=== PATIENT | male | born 1940 | race Caucasian/White ===

== ENCOUNTER → 2019-11-22 | Outpatient (CLI) | payer MEDICARE | END | disposition home or self-care (01) | LOC: CFH 13:50 | PROVIDERS: ATTEND Internal Medicine Hematology & Oncology | DX: C44.729 Squamous cell carcinoma of skin of left lower limb, including hip (principal); N13.30 Unspecified hydronephrosis; N28.1 Cyst of kidney, acquired | CPT/HCPCS: 76770 ==

== ENCOUNTER → 2020-01-16 | Outpatient (CLI) | payer MEDICARE | END | disposition home or self-care (01) | LOC: CFH 07:27 | PROVIDERS: ATTEND Internal Medicine Hematology & Oncology | DX: R91.8 Other nonspecific abnormal finding of lung field (principal); R16.0 Hepatomegaly, not elsewhere classified; N13.30 Unspecified hydronephrosis; J98.4 Other disorders of lung; N62 Hypertrophy of breast; M51.36 Other intervertebral disc degeneration, lumbar region; M16.0 Bilateral primary osteoarthritis of hip; Z90.79 Acquired absence of other genital organ(s) | CPT/HCPCS: 71250; 74176 ==

== ENCOUNTER → 2020-02-04 | Outpatient (CLI) | payer MEDICARE | END | disposition home or self-care (01) | LOC: CARD 11:40 | PROVIDERS: ATTEND Internal Medicine Cardiovascular Disease | DX: R06.02 Shortness of breath (principal) | CPT/HCPCS: 94060; 94726; 94729 ==

== ENCOUNTER 2020-02-17 15:21 | Inpatient (IN) | payer MEDICARE ==
[~2020-02-17] VITALS: Ht 175.3 cm; Wt 108.2 kg
--- NOTE | 2020-02-17 15:43 | NUR ---
PT SENT TO ED PER [facility] APPRAISER. U/S DONE AT [facility] TODAY. STATES "MY KIDNEYS AREN'T WORKING RIGHT". ADMITS TO VOIDING EARLIER. DR MENCHACA NOW BS FOR EXAM. DENIES FEVER, CHILLS, COUGH. REPORTS TROUBLE BREATHING "FOR A WHILE". ABLE TO SPEAK IN COMPLETE SENTENCE. DENIES CP, URINARY DIFFICULTY. + PEDAL EDEMA BILAT X "A COUPLE OF MONTHS". HX: PROSTATE CA, PROSTATECTOMY, CA STAGE IV - LIVER,
[2020-02-17] MEDS ORDERED: SODIUM CHLORIDE FLUSH 10ML SYR IVF ONE (16:00)
[2020-02-17] MEDS ORDERED: COUMADIN (16:01)
[2020-02-17] MEDS ORDERED: ALLOPURINOL (16:06)
[2020-02-17] MEDS ORDERED: WARFARIN (16:06)
--- NOTE | 2020-02-17 16:06 | NUR ---
PT UNABLE TO RECALL NAMES/DOSAGES OF ALL HIS MEDS
[2020-02-17] MEDS ORDERED: CANCER (16:07)
[2020-02-17 16:24] LABS: BASOPHILS # (AUTO) 0.01 x10^3/uL (0-0.1); BASOPHILS % (AUTO) 0 % (0-1); EOSINOPHILS # (AUTO) 0.21 x10^3/uL (0-0.4); EOSINOPHILS % (AUTO) 3 % (1-7); LYMPHOCYTES # (AUTO) 0.29 x10^3/uL (1-3.4); LYMPHOCYTES % (AUTO) 3 % (22-44); MD NO; MEAN PLATELET VOLUME 8.8 fL (7.4-10.4); MONOCYTES # (AUTO) 0.78 x10^3/uL (0.2-0.8); MONOCYTES % (AUTO) 9 % (2-9); NEUTROPHILS # (AUTO) 7.36 x10^3/uL (1.8-6.8); NEUTROPHILS % (AUTO) 85 % (42-75); PLATELET COUNT 257 x10^3/uL (130-400); RED BLOOD COUNT 2.82 x10^6/uL (4.38-5.82); RED CELL DISTRIBUTION WIDTH 15.8 % (9.4-14.8)
[2020-02-17 16:36] LABS: CALCIUM 9.4 mg/dL (8.5-10.1); CHLORIDE 106 mmol/L (98-107)
[2020-02-17 16:39] LABS: INTERNATIONAL NORMALIZED RATIO 4.45 (0.93-1.1)
[2020-02-17 16:43] LABS: ALANINE AMINOTRANSFERASE 12 U/L (12-78); ALKALINE PHOSPHATASE 87 U/L (45-117); BILIRUBIN,TOTAL 0.2 mg/dL (0.2-1.0); CREATININE 8.57 mg/dL (0.7-1.3); TOTAL PROTEIN 7.3 g/dL (6.4-8.2)
[2020-02-17 16:44] LABS: ANION GAP 11 mmol/L (5-15)
[2020-02-17] MEDS ORDERED: FUROSEMIDE 40 MG/4 ML IVPush ONE (17:00)
[2020-02-17] MEDS ORDERED: DEXTROSE 50%, 50ML SYRINGE IVPush ONE (17:00)
[2020-02-17] MEDS ORDERED: INSULIN REGULAR 100 UNITS/ML, 3ML VIAL IVPush ONE (17:00)
[2020-02-17] MEDS ORDERED: CALCIUM CHLORIDE 10%, 10ML SYR IVPush ONE (17:00)
[2020-02-17] MEDS ORDERED: SODIUM BICARB 8.4%, 50ML SYRINGE IVPush ONE (17:00)
[2020-02-17 17:01] LABS: PROTHROMBIN TIME 47.9 Seconds (9.6-11.5)
[2020-02-17] MEDS ORDERED: SODIUM BICARBONATE 1 MEQ/ML, 50ML VIAL ONE (17:09)
[2020-02-17] MEDS ORDERED: FUROSEMIDE 40 MG/4 ML ONE (17:10)
[2020-02-17] MEDS ORDERED: DEXTROSE 50%, 50ML SYRINGE ONE (17:10)
[2020-02-17] MEDS ORDERED: CALCIUM CHLORIDE 10%, 10ML SYR ONE (17:11)
--- NOTE | 2020-02-17 17:25 | NUR ---
PT ENDORSED TO BREAK RN: MARIZOL.
[2020-02-17] MEDS ORDERED: INSULIN SINGLE DOSE, ER ONE (17:30)
--- NOTE | 2020-02-17 17:40 | NUR ---
TASK RN: WILL PLACE IV AND ADMINISTER MEDICATIONS AFTER TEMP DIALYSIS CATH IS PLACED.
[2020-02-17] MEDS ORDERED: SODIUM CHLORIDE FLUSH 10ML SYR IVF PRN (18:00)
--- NOTE | 2020-02-17 18:11 | NUR ---
PT REPORT FROM CAROLYNE FONTANA RN. PT CARE TO BE ASSUMED. PT TO GO TO DIALYSIS THEN FLOOR. HOSPITALIST AT . Addendum: 02/17/20 at 181 by TREVON PER MARIZOL: ARAGON ORDER WAS CANCELED AND PREVIOUSLY ORDERED MEDS ON HOLD DUE TO PENDING DIALYSIS. Addendum: 02/17/20 at 1823 by TREVON CORRECTION: EVENT ORGANIZER AT , NOT HOSPITALIST.
--- NOTE | 2020-02-17 18:20 | NUR ---
CALLED [facility] REPAIR[facility]; PER WESLY NORRIS PT MAY COME TO UNIT NOW. PREFERS THAT PT BE ON A GURNEY.
[2020-02-17] MEDS ORDERED: ACETAMINOPHEN 325 MG TABLET PO PRN (18:30)
[2020-02-17] MEDS ORDERED: ONDANSETRON ODT 4 MG PO PRN (18:30)
[2020-02-17] MEDS ORDERED: PHYTONADIONE 1 MG/0.5ML IV ONE (21:00)
[2020-02-17] MEDS ORDERED: PHARMACY INSTRUCTION MC PRN (21:00)
[2020-02-17] MEDS ORDERED: PHYTONADIONE 2.5 MG in SODIUM CHLORIDE 0.9% 50 ML IV ONE (21:30)
[2020-02-17 21:43] VITALS: BP 169/92
[2020-02-17] MEDS ORDERED: WARF1TAB PO (21:47)
[2020-02-17] MEDS ORDERED: ALLO300T PO (21:47)
[2020-02-17] MEDS ORDERED: NAPR220C2 PO (21:47)
[2020-02-17] MEDS ORDERED: ENZA40CA PO (22:20)
[2020-02-17] MEDS ORDERED: LORA10TA75 PO (22:22)
[2020-02-17] MEDS: SODIUM CHLORIDE FLUSH 10ML SYR IVF SCH (22:43)
[2020-02-17] MEDS: ONDANSETRON 2MG/ML, 2ML IVPush PRN (23:17)
[2020-02-18 00:55] VITALS: BP 148/76
[2020-02-18 01:51] LABS: MICROSCOPIC AUTO
[2020-02-18 01:52] LABS: CULTURE INDICATED? NO
[2020-02-18 06:05] LABS: BASOPHILS % (AUTO) 0 % (0-1); EOSINOPHILS # (AUTO) 0.09 x10^3/uL (0-0.4); EOSINOPHILS % (AUTO) 1 % (1-7); LYMPHOCYTES % (AUTO) 3 % (22-44); MD NO; MEAN CORPUSCULAR HEMOGLOBIN 35.2 pg (27.5-34.5); MEAN CORPUSCULAR VOLUME 106.6 fL (81-97); MEAN PLATELET VOLUME 9.3 fL (7.4-10.4); MONOCYTES # (AUTO) 0.75 x10^3/uL (0.2-0.8); MONOCYTES % (AUTO) 8 % (2-9); NEUTROPHILS # (AUTO) 8.43 x10^3/uL (1.8-6.8); NEUTROPHILS % (AUTO) 88 % (42-75); PLATELET COUNT 231 x10^3/uL (130-400); RED BLOOD COUNT 2.73 x10^6/uL (4.38-5.82); RED CELL DISTRIBUTION WIDTH 15.8 % (9.4-14.8)
[2020-02-18 06:13] LABS: INTERNATIONAL NORMALIZED RATIO 1.99 (0.93-1.1); PROTHROMBIN TIME 21.2 Seconds (9.6-11.5)
[2020-02-18 06:22] LABS: ANION GAP 10 mmol/L (5-15); CALCIUM 8.9 mg/dL (8.5-10.1); CHLORIDE 105 mmol/L (98-107); CREATININE 6.68 mg/dL (0.7-1.3)
[2020-02-18 06:56] VITALS: BP 153/84
[2020-02-18] MEDS: SODIUM CHLORIDE FLUSH 10ML SYR IVF SCH ×2 (09:10→20:23)
[2020-02-18] MEDS: METOPROLOL SUCCINATE 100 MG TAB.ER.24H PO SCH (09:11)
[2020-02-18] MEDS ORDERED: PHYTONADIONE 5 MG TABLET PO ONE (11:00)
[2020-02-18 12:40] VITALS: BP 162/80
[2020-02-18 17:22] LABS: BASOPHILS # (AUTO) 0.01 x10^3/uL (0-0.1); BASOPHILS % (AUTO) 0 % (0-1); EOSINOPHILS # (AUTO) 0.16 x10^3/uL (0-0.4); EOSINOPHILS % (AUTO) 2 % (1-7); LYMPHOCYTES # (AUTO) 0.29 x10^3/uL (1-3.4); LYMPHOCYTES % (AUTO) 3 % (22-44); MD NO; MEAN CORPUSCULAR HEMOGLOBIN 35.1 pg (27.5-34.5); MEAN CORPUSCULAR HGB CONC 33.1 g/dL (33.2-36.2); MEAN CORPUSCULAR VOLUME 106.2 fL (81-97); MEAN PLATELET VOLUME 8.5 fL (7.4-10.4); MONOCYTES # (AUTO) 1.13 x10^3/uL (0.2-0.8); MONOCYTES % (AUTO) 12 % (2-9); NEUTROPHILS # (AUTO) 7.81 x10^3/uL (1.8-6.8); NEUTROPHILS % (AUTO) 83 % (42-75); PLATELET COUNT 257 x10^3/uL (130-400); RED CELL DISTRIBUTION WIDTH 15.7 % (9.4-14.8)
[2020-02-18 18:59] VITALS: BP 129/65
[2020-02-19 00:12] VITALS: BP 138/79
[2020-02-19] MEDS: METOPROLOL SUCCINATE 100 MG TAB.ER.24H PO SCH (05:22)
[2020-02-19 05:48] LABS: BASOPHILS # (AUTO) 0.05 x10^3/uL (0-0.1); BASOPHILS % (AUTO) 1 % (0-1); EOSINOPHILS # (AUTO) 0.18 x10^3/uL (0-0.4); EOSINOPHILS % (AUTO) 2 % (1-7); LYMPHOCYTES # (AUTO) 0.36 x10^3/uL (1-3.4); LYMPHOCYTES % (AUTO) 4 % (22-44); MD NO; MEAN CORPUSCULAR HGB CONC 32.8 g/dL (33.2-36.2); MEAN CORPUSCULAR VOLUME 106.8 fL (81-97); MEAN PLATELET VOLUME 8.6 fL (7.4-10.4); MONOCYTES % (AUTO) 10 % (2-9); NEUTROPHILS # (AUTO) 8.39 x10^3/uL (1.8-6.8); NEUTROPHILS % (AUTO) 84 % (42-75); PLATELET COUNT 246 x10^3/uL (130-400); RED BLOOD COUNT 2.49 x10^6/uL (4.38-5.82)
[2020-02-19 05:57] LABS: CALCIUM 8.9 mg/dL (8.5-10.1); CHLORIDE 102 mmol/L (98-107)
[2020-02-19 05:58] LABS: INTERNATIONAL NORMALIZED RATIO 1.1 (0.93-1.1); PROTHROMBIN TIME 11.7 Seconds (9.6-11.5)
[2020-02-19 06:03] LABS: ALANINE AMINOTRANSFERASE 11 U/L (12-78); ALBUMIN 2.5 g/dL (3.4-5.0); ALKALINE PHOSPHATASE 77 U/L (45-117); ANION GAP 10 mmol/L (5-15); BILIRUBIN,TOTAL 0.6 mg/dL (0.2-1.0); CREATININE 5.48 mg/dL (0.7-1.3); TOTAL PROTEIN 6.5 g/dL (6.4-8.2)
[2020-02-19 06:50] VITALS: BP 124/77
[2020-02-19] MEDS: SODIUM CHLORIDE FLUSH 10ML SYR IVF SCH ×2 (09:00→20:10)
[2020-02-19] MEDS ORDERED: LIDOCAINE 1%, 20ML ONE (09:31)
[2020-02-19] MEDS ORDERED: MIDAZOLAM 1 MG/ML, 5ML ONE (09:46)
[2020-02-19] MEDS ORDERED: FENTANYL PF 100 MCG/2ML ONE (09:46)
[2020-02-19] MEDS ORDERED: FLUMAZENIL 0.1 MG/1 ML, 5ML ONE (09:46)
[2020-02-19] MEDS ORDERED: NALOXONE 1 MG/ML, 2ML ONE (09:46)
[2020-02-19] MEDS ORDERED: VISIPAQUE 270 MG/ML, 50ML BOTTLE ONE (11:30)
[2020-02-19 12:30] VITALS: BP 118/60
[2020-02-19 18:49] VITALS: BP 124/70
[2020-02-20 00:16] VITALS: BP 154/77
[2020-02-20 00:29] VITALS: BP 152/78
[2020-02-20 05:25] LABS: MEAN CORPUSCULAR HGB CONC 33.5 g/dL (33.2-36.2); MEAN CORPUSCULAR VOLUME 107.3 fL (81-97); MEAN PLATELET VOLUME 8.9 fL (7.4-10.4); PLATELET COUNT 239 x10^3/uL (130-400); RED BLOOD COUNT 2.28 x10^6/uL (4.38-5.82); RED CELL DISTRIBUTION WIDTH 15.5 % (9.4-14.8)
[2020-02-20 05:29] LABS: CHLORIDE 107 mmol/L (98-107)
[2020-02-20 05:36] LABS: ALANINE AMINOTRANSFERASE 8 U/L (12-78); ALBUMIN 2.2 g/dL (3.4-5.0); ALKALINE PHOSPHATASE 71 U/L (45-117); ANION GAP 9 mmol/L (5-15); BILIRUBIN,TOTAL 0.6 mg/dL (0.2-1.0); CALCIUM 8.9 mg/dL (8.5-10.1); CREATININE 5.45 mg/dL (0.7-1.3); TOTAL PROTEIN 6.1 g/dL (6.4-8.2)
[2020-02-20 06:22] LABS: MD MORPH REVIEW ONLY
[2020-02-20 06:23] LABS: <PLATELET ESTIMATE> ADEQUATE; <PLT MORPHOLOGY> NORMAL PLT MORPH; ANISOCYTOSIS 1+; BASOPHILS # (AUTO) 0.01 x10^3/uL (0-0.1); BASOPHILS % (AUTO) 0 % (0-1); EOSINOPHILS % (AUTO) 4 % (1-7); LYMPHOCYTES # (AUTO) 0.38 x10^3/uL (1-3.4); LYMPHOCYTES % (AUTO) 6 % (22-44); MONOCYTES # (AUTO) 0.68 x10^3/uL (0.2-0.8); MONOCYTES % (AUTO) 10 % (2-9); NEUTROPHILS # (AUTO) 5.51 x10^3/uL (1.8-6.8); NEUTROPHILS % (AUTO) 80 % (42-75)
[2020-02-20 07:43] VITALS: BP 153/80
[2020-02-20 08:33] LABS: INTERNATIONAL NORMALIZED RATIO 0.97 (0.93-1.1); PROTHROMBIN TIME 10.3 Seconds (9.6-11.5)
[2020-02-20] MEDS: SODIUM CHLORIDE FLUSH 10ML SYR IVF SCH ×2 (09:00→20:36)
[2020-02-20] MEDS ORDERED: SENNA/DOCUSATE TABLET PO PRN (11:00)
[2020-02-20 13:36] VITALS: BP 148/82
[2020-02-20] MEDS ORDERED: WARFARIN 5 MG TABLET PO-COUM ONE (18:00)
[2020-02-20 19:07] VITALS: BP 158/80
[2020-02-21 00:11] VITALS: BP 150/88
[2020-02-21 05:28] VITALS: BP 161/95
[2020-02-21] MEDS: METOPROLOL SUCCINATE 100 MG TAB.ER.24H PO SCH (05:32)
[2020-02-21 05:36] LABS: BASOPHILS % (AUTO) 0 % (0-1); EOSINOPHILS # (AUTO) 0.27 x10^3/uL (0-0.4); EOSINOPHILS % (AUTO) 5 % (1-7); INTERNATIONAL NORMALIZED RATIO 0.99 (0.93-1.1); LYMPHOCYTES % (AUTO) 7 % (22-44); MD NO; MEAN CORPUSCULAR HEMOGLOBIN 35.6 pg (27.5-34.5); MEAN CORPUSCULAR HGB CONC 33.5 g/dL (33.2-36.2); MEAN CORPUSCULAR VOLUME 106.2 fL (81-97); MEAN PLATELET VOLUME 8.6 fL (7.4-10.4); MONOCYTES # (AUTO) 0.68 x10^3/uL (0.2-0.8); MONOCYTES % (AUTO) 12 % (2-9); NEUTROPHILS # (AUTO) 4.57 x10^3/uL (1.8-6.8); NEUTROPHILS % (AUTO) 77 % (42-75); PLATELET COUNT 272 x10^3/uL (130-400); PROTHROMBIN TIME 10.5 Seconds (9.6-11.5); RED BLOOD COUNT 2.45 x10^6/uL (4.38-5.82)
[2020-02-21 05:38] LABS: ANION GAP 6 mmol/L (5-15); CALCIUM 9.2 mg/dL (8.5-10.1); CHLORIDE 107 mmol/L (98-107)
[2020-02-21 09:45] VITALS: BP 150/87
[2020-02-21] MEDS: DOCUSATE 100 MG CAPSULE PO PRN (11:23)
[2020-02-21] MEDS: SODIUM CHLORIDE FLUSH 10ML SYR IVF SCH ×2 (11:23→20:54)
[2020-02-21 12:10] VITALS: BP 136/83
[2020-02-21] MEDS ORDERED: WARFARIN 5 MG TABLET PO-COUM ONE (18:00)
[2020-02-21 19:14] VITALS: BP 160/89
[2020-02-22 00:22] VITALS: BP 135/76
[2020-02-22] MEDS: METOPROLOL SUCCINATE 100 MG TAB.ER.24H PO SCH (05:16)
[2020-02-22 05:51] LABS: BASOPHILS # (AUTO) 0.01 x10^3/uL (0-0.1); BASOPHILS % (AUTO) 0 % (0-1); EOSINOPHILS # (AUTO) 0.29 x10^3/uL (0-0.4); EOSINOPHILS % (AUTO) 5 % (1-7); LYMPHOCYTES # (AUTO) 0.36 x10^3/uL (1-3.4); LYMPHOCYTES % (AUTO) 6 % (22-44); MD NO; MEAN CORPUSCULAR HEMOGLOBIN 35.8 pg (27.5-34.5); MEAN CORPUSCULAR HGB CONC 33.5 g/dL (33.2-36.2); MEAN CORPUSCULAR VOLUME 106.9 fL (81-97); MEAN PLATELET VOLUME 8.5 fL (7.4-10.4); MONOCYTES # (AUTO) 0.63 x10^3/uL (0.2-0.8); MONOCYTES % (AUTO) 11 % (2-9); NEUTROPHILS # (AUTO) 4.42 x10^3/uL (1.8-6.8); NEUTROPHILS % (AUTO) 77 % (42-75); PLATELET COUNT 269 x10^3/uL (130-400); RED BLOOD COUNT 2.26 x10^6/uL (4.38-5.82); RED CELL DISTRIBUTION WIDTH 15.6 % (9.4-14.8)
[2020-02-22 06:02] LABS: ALBUMIN 2.4 g/dL (3.4-5.0); ANION GAP 7 mmol/L (5-15); CALCIUM 8.8 mg/dL (8.5-10.1); CHLORIDE 108 mmol/L (98-107)
[2020-02-22 06:04] LABS: INTERNATIONAL NORMALIZED RATIO 1.09 (0.93-1.1); PROTHROMBIN TIME 11.6 Seconds (9.6-11.5)
[2020-02-22 06:05] LABS: ALANINE AMINOTRANSFERASE 10 U/L (12-78); ALKALINE PHOSPHATASE 72 U/L (45-117); BILIRUBIN,TOTAL 0.5 mg/dL (0.2-1.0); TOTAL PROTEIN 6.3 g/dL (6.4-8.2)
[2020-02-22 08:20] VITALS: BP 132/85
[2020-02-22 09:23] VITALS: BP 107/69
[2020-02-22] MEDS: SODIUM CHLORIDE FLUSH 10ML SYR IVF SCH ×2 (09:31→20:41)
[2020-02-22 12:02] VITALS: BP 120/75
[2020-02-22] MEDS ORDERED: WARFARIN 5 MG TABLET PO-COUM ONE (18:00)
[2020-02-22 18:56] VITALS: BP 136/80
[2020-02-23 00:26] VITALS: BP 125/78
[2020-02-23] MEDS: DOCUSATE 100 MG CAPSULE PO PRN (04:35)
[2020-02-23 04:51] LABS: BASOPHILS % (AUTO) 0 % (0-1); EOSINOPHILS # (AUTO) 0.27 x10^3/uL (0-0.4); EOSINOPHILS % (AUTO) 4 % (1-7); LYMPHOCYTES # (AUTO) 0.39 x10^3/uL (1-3.4); LYMPHOCYTES % (AUTO) 7 % (22-44); MD NO; MEAN CORPUSCULAR HEMOGLOBIN 34.8 pg (27.5-34.5); MEAN CORPUSCULAR HGB CONC 32.4 g/dL (33.2-36.2); MEAN CORPUSCULAR VOLUME 107.4 fL (81-97); MEAN PLATELET VOLUME 7.7 fL (7.4-10.4); MONOCYTES # (AUTO) 0.58 x10^3/uL (0.2-0.8); MONOCYTES % (AUTO) 10 % (2-9); NEUTROPHILS % (AUTO) 79 % (42-75); PLATELET COUNT 312 x10^3/uL (130-400); RED BLOOD COUNT 2.32 x10^6/uL (4.38-5.82)
[2020-02-23 05:01] LABS: INTERNATIONAL NORMALIZED RATIO 1.05 (0.93-1.1); PROTHROMBIN TIME 11.1 Seconds (9.6-11.5)
[2020-02-23 05:03] LABS: ANION GAP 9 mmol/L (5-15); CALCIUM 8.8 mg/dL (8.5-10.1); CHLORIDE 106 mmol/L (98-107); CREATININE 3.08 mg/dL (0.7-1.3)
[2020-02-23] MEDS: METOPROLOL SUCCINATE 100 MG TAB.ER.24H PO SCH (05:42)
[2020-02-23 08:01] VITALS: BP 125/75
[2020-02-23] MEDS: SODIUM CHLORIDE FLUSH 10ML SYR IVF SCH ×2 (09:00→19:30)
[2020-02-23 12:29] VITALS: BP 103/67
[2020-02-23] MEDS ORDERED: FENTANYL PF 100 MCG/2ML ONE ×2 (14:02→14:26)
[2020-02-23] MEDS ORDERED: NALOXONE 1 MG/ML, 2ML ONE (14:03)
[2020-02-23] MEDS ORDERED: ONDANSETRON 2MG/ML, 2ML ONE (15:00)
[2020-02-23] MEDS ORDERED: WARFARIN 7.5 MG TABLET PO-COUM ONE (18:00)
[2020-02-23 18:50] VITALS: BP 119/78
[2020-02-23] MEDS: ONDANSETRON 2MG/ML, 2ML IVPush PRN (23:11)
[2020-02-23] MEDS: MORPHINE SULFATE 4 MG/ML, 1ML IVPush PRN (23:12)
[2020-02-24 01:02] VITALS: BP 109/71
[2020-02-24] MEDS: MORPHINE SULFATE 4 MG/ML, 1ML IVPush PRN (04:41)
[2020-02-24] MEDS: METOPROLOL SUCCINATE 100 MG TAB.ER.24H PO SCH (06:00)
[2020-02-24 06:10] VITALS: BP 95/58
[2020-02-24] MEDS: HYDROmorphone 1 MG/ML, 1ML INJ IV PRN ×2 (07:37→12:12)
[2020-02-24] MEDS: SODIUM CHLORIDE FLUSH 10ML SYR IVF SCH ×2 (07:37→21:20)
[2020-02-24 07:51] VITALS: BP 95/63
[2020-02-24 10:10] LABS: MEAN CORPUSCULAR HEMOGLOBIN 35.1 pg (27.5-34.5); MEAN CORPUSCULAR VOLUME 106.4 fL (81-97); MEAN PLATELET VOLUME 8.2 fL (7.4-10.4); PLATELET COUNT 318 x10^3/uL (130-400); RED BLOOD COUNT 2.27 x10^6/uL (4.38-5.82); RED CELL DISTRIBUTION WIDTH 15.9 % (9.4-14.8)
[2020-02-24 10:16] LABS: ANION GAP 7 mmol/L (5-15); CALCIUM 9.3 mg/dL (8.5-10.1); CHLORIDE 104 mmol/L (98-107); CREATININE 5.25 mg/dL (0.7-1.3)
[2020-02-24 10:24] LABS: MD YES
[2020-02-24 10:26] LABS: BAND#(MANUAL) 0.13 x10^3/uL; BANDS%(MANUAL) 1 % (0-7); LYMPHS% (MANUAL) 3 % (22-44); METAMYELOCYTES# (MANUAL) 0.13 x10^3/uL (0-0); METAMYELOCYTES% (MANUAL) 1 % (0-1); MONOS% (MANUAL) 3 % (2-9); MYELOCYTES# (MANUAL) 0.13 x10^3/uL (0-0); MYELOCYTES% (MANUAL) 1 % (0-0); SEG#(MANUAL) 12.01 x10^3/uL (1.8-6.8); SEGS% (MANUAL) 91 % (42-75)
[2020-02-24 10:27] LABS: <PLATELET ESTIMATE> ADEQUATE; <PLT MORPHOLOGY> NORMAL PLT MORPH; ANISOCYTOSIS 1+
[2020-02-24 10:28] LABS: OVALOCYTES 1+
[2020-02-24 10:29] LABS: INTERNATIONAL NORMALIZED RATIO 1.1 (0.93-1.1); PROTHROMBIN TIME 11.7 Seconds (9.6-11.5)
[2020-02-24] MEDS ORDERED: SODIUM CHLORIDE 0.9% 1,000 ML IV SCH (11:00)
[2020-02-24] MEDS ORDERED: SODIUM BICARBONATE 8.4% 150 MEQ in DEXTROSE 5% 1,000 ML IV SCH (11:30)
[2020-02-24] MEDS ORDERED: FENTANYL PF 100 MCG/2ML ONE ×2 (12:22→12:23)
[2020-02-24] MEDS ORDERED: MIDAZOLAM 1 MG/ML, 5ML ONE (12:22)
[2020-02-24] MEDS ORDERED: FLUMAZENIL 0.1 MG/1 ML, 5ML ONE (12:22)
[2020-02-24] MEDS ORDERED: NALOXONE 1 MG/ML, 2ML ONE (12:23)
[2020-02-24] MEDS ORDERED: LIDOCAINE 1%, 10ML ONE (12:49)
[2020-02-24] MEDS ORDERED: VISIPAQUE 270 MG/ML, 50ML BOTTLE ONE (13:13)
[2020-02-24 15:38] LABS: ALBUMIN 2.5 g/dL (3.4-5.0); ANION GAP 6 mmol/L (5-15); CALCIUM 9.2 mg/dL (8.5-10.1); CHLORIDE 103 mmol/L (98-107); CREATININE 5.81 mg/dL (0.7-1.3)
[2020-02-24 16:55] VITALS: BP 96/62
[2020-02-24] MEDS: SODIUM POLYSTYRENE SULFONATE ORAL SUSP PO SCH ×2 (17:43→21:20)
[2020-02-24] MEDS ORDERED: WARFARIN 3 MG TABLET PO-COUM ONE (18:00)
[2020-02-24 18:27] VITALS: BP 106/53
[2020-02-24] MEDS ORDERED: SODIUM BICARBONATE 650 MG TABLET PO SCH (21:00)
[2020-02-25] VITALS (7 sets, daily range): BP systolic 92–119; BP diastolic 57–71
[2020-02-25 05:41] LABS: ALBUMIN 2.3 g/dL (3.4-5.0); ANION GAP 12 mmol/L (5-15); CHLORIDE 103 mmol/L (98-107); CREATININE 6.62 mg/dL (0.7-1.3); MEAN CORPUSCULAR HEMOGLOBIN 35.4 pg (27.5-34.5); MEAN CORPUSCULAR HGB CONC 32.8 g/dL (33.2-36.2); MEAN CORPUSCULAR VOLUME 108.1 fL (81-97); MEAN PLATELET VOLUME 8.6 fL (7.4-10.4); PLATELET COUNT 249 x10^3/uL (130-400); RED BLOOD COUNT 1.88 x10^6/uL (4.38-5.82); RED CELL DISTRIBUTION WIDTH 15.6 % (9.4-14.8)
[2020-02-25] MEDS ORDERED: METOPROLOL SUCCINATE 50 MG TAB.ER.24H PO SCH (06:00)
[2020-02-25] MEDS: SODIUM POLYSTYRENE SULFONATE ORAL SUSP PO SCH ×3 (06:12→21:03)
[2020-02-25 06:16] LABS: BASOPHILS % (AUTO) 0 % (0-1); EOSINOPHILS # (AUTO) 0.15 x10^3/uL (0-0.4); EOSINOPHILS % (AUTO) 1 % (1-7); LYMPHOCYTES # (AUTO) 0.33 x10^3/uL (1-3.4); LYMPHOCYTES % (AUTO) 3 % (22-44); MD SCAN; MONOCYTES # (AUTO) 0.92 x10^3/uL (0.2-0.8); MONOCYTES % (AUTO) 8 % (2-9); NEUTROPHILS # (AUTO) 10.41 x10^3/uL (1.8-6.8); NEUTROPHILS % (AUTO) 88 % (42-75)
[2020-02-25 06:23] LABS: INTERNATIONAL NORMALIZED RATIO 1.22 (0.93-1.1)
[2020-02-25] MEDS: SODIUM CHLORIDE FLUSH 10ML SYR IVF SCH ×2 (07:40→21:00)
[2020-02-25] MEDS: SODIUM BICARBONATE 650 MG TABLET PO SCH ×2 (07:40→21:03)
[2020-02-25] MEDS: HYDROmorphone 1 MG/ML, 1ML INJ IV PRN ×2 (07:59→13:06)
[2020-02-25 08:22] LABS: MICROSCOPIC INDICATED
[2020-02-25 08:38] LABS: CULTURE INDICATED? YES
[2020-02-25] MEDS ORDERED: SODIUM BICARBONATE 8.4% 150 MEQ in DEXTROSE 5% 1,000 ML IV SCH (11:30)
[2020-02-25] MEDS ORDERED: LIDOCAINE 1%, 10ML ONE ×2 (13:11→14:51)
[2020-02-25] MEDS ORDERED: MIDAZOLAM 1 MG/ML, 5ML ONE (13:37)
[2020-02-25] MEDS ORDERED: FENTANYL PF 100 MCG/2ML ONE ×2 (13:37→14:46)
[2020-02-25] MEDS ORDERED: NALOXONE 1 MG/ML, 2ML ONE (13:38)
[2020-02-25] MEDS ORDERED: FLUMAZENIL 0.1 MG/1 ML, 5ML ONE (13:38)
[2020-02-25] MEDS ORDERED: VISIPAQUE 320MG/ML, 50ML BOTTLE ONE (15:09)
[2020-02-25] MEDS ORDERED: WARFARIN 3 MG TABLET PO-COUM ONE (18:00)
[2020-02-26 01:04] VITALS: BP 110/65
[2020-02-26 05:43] LABS: ALBUMIN 2.4 g/dL (3.4-5.0); ANION GAP 15 mmol/L (5-15); CALCIUM 9.1 mg/dL (8.5-10.1); CHLORIDE 101 mmol/L (98-107); CREATININE 6.47 mg/dL (0.7-1.3)
[2020-02-26 05:45] LABS: INTERNATIONAL NORMALIZED RATIO 1.49 (0.93-1.1); PROTHROMBIN TIME 15.9 Seconds (9.6-11.5)
[2020-02-26 06:08] LABS: BASOPHILS % (AUTO) 0 % (0-1); EOSINOPHILS # (AUTO) 0.08 x10^3/uL (0-0.4); EOSINOPHILS % (AUTO) 1 % (1-7); LYMPHOCYTES % (AUTO) 1 % (22-44); MD NO; MEAN CORPUSCULAR HEMOGLOBIN 35.1 pg (27.5-34.5); MEAN CORPUSCULAR HGB CONC 33.4 g/dL (33.2-36.2); MEAN CORPUSCULAR VOLUME 105.1 fL (81-97); MEAN PLATELET VOLUME 9.2 fL (7.4-10.4); MONOCYTES # (AUTO) 0.62 x10^3/uL (0.2-0.8); MONOCYTES % (AUTO) 4 % (2-9); NEUTROPHILS # (AUTO) 14.32 x10^3/uL (1.8-6.8); NEUTROPHILS % (AUTO) 94 % (42-75); PLATELET COUNT 280 x10^3/uL (130-400); RED BLOOD COUNT 2.25 x10^6/uL (4.38-5.82); RED CELL DISTRIBUTION WIDTH 16.8 % (9.4-14.8)
[2020-02-26 07:10] VITALS: BP 114/67
[2020-02-26] MEDS: SODIUM CHLORIDE FLUSH 10ML SYR IVF SCH ×2 (09:00→21:11)
[2020-02-26] MEDS: SODIUM BICARBONATE 650 MG TABLET PO SCH ×2 (10:01→21:11)
[2020-02-26] MEDS: SODIUM POLYSTYRENE SULFONATE ORAL SUSP PO SCH (10:02)
[2020-02-26 12:45] VITALS: BP 119/68
[2020-02-26] MEDS: ONDANSETRON 2MG/ML, 2ML IVPush PRN (17:57)
[2020-02-26] MEDS: HYDROmorphone 1 MG/ML, 1ML INJ IV PRN ×2 (17:58→23:10)
[2020-02-26] MEDS ORDERED: WARFARIN 7.5 MG TABLET PO-COUM ONE (18:00)
[2020-02-26 19:24] VITALS: BP 110/64
[2020-02-27] VITALS (9 sets, daily range): BP systolic 93–145; BP diastolic 53–72
[2020-02-27] MEDS: HYDROmorphone 1 MG/ML, 1ML INJ IV PRN ×2 (03:51→14:40)
[2020-02-27 04:59] LABS: INTERNATIONAL NORMALIZED RATIO 2.34 (0.93-1.1)
[2020-02-27 05:02] LABS: ANION GAP 12 mmol/L (5-15); CALCIUM 8.9 mg/dL (8.5-10.1); CHLORIDE 101 mmol/L (98-107); CREATININE 4.87 mg/dL (0.7-1.3)
[2020-02-27 05:12] LABS: MEAN CORPUSCULAR HEMOGLOBIN 34.9 pg (27.5-34.5); MEAN CORPUSCULAR HGB CONC 33.2 g/dL (33.2-36.2); PLATELET COUNT 279 x10^3/uL (130-400); RED BLOOD COUNT 1.93 x10^6/uL (4.38-5.82); RED CELL DISTRIBUTION WIDTH 16.8 % (9.4-14.8)
[2020-02-27 05:47] LABS: BASOPHILS % (AUTO) 0 % (0-1); EOSINOPHILS # (AUTO) 0.17 x10^3/uL (0-0.4); EOSINOPHILS % (AUTO) 2 % (1-7); LYMPHOCYTES % (AUTO) 4 % (22-44); MD SCAN; MONOCYTES # (AUTO) 0.72 x10^3/uL (0.2-0.8); MONOCYTES % (AUTO) 7 % (2-9); NEUTROPHILS # (AUTO) 9.72 x10^3/uL (1.8-6.8); NEUTROPHILS % (AUTO) 88 % (42-75)
[2020-02-27] MEDS ORDERED: POTASSIUM CHLORIDE 40 MEQ in SODIUM CHLORIDE 0.9% 500 ML IV ONE (07:00)
[2020-02-27] MEDS ORDERED: POTASSIUM CHLORIDE 20 MEQ TAB.ER.PRT PO SCH (08:00)
[2020-02-27] MEDS: SODIUM CHLORIDE FLUSH 10ML SYR IVF SCH (08:15)
[2020-02-27] MEDS: SODIUM BICARBONATE 650 MG TABLET PO SCH (08:15)
[2020-02-27] MEDS ORDERED: OXYC5TAB2 BC (12:41)
[2020-02-27] MEDS ORDERED: morphine BC (12:41)
[2020-02-27] MEDS ORDERED: DOCU100C33 PO (12:41)
[2020-02-27] MEDS ORDERED: WARFARIN 5 MG TABLET PO-COUM ONE (18:00)
== END 2020-02-27 15:59 | disposition hospice, home (50) | DRG 682 ==
LOC: ED 15:46 → EDIP 18:07 → 4WST 18:28
PROVIDERS: ADMIT Family Medicine; ATTEND Family Medicine
PROC: 5A1D70Z Performance of Urinary Filtration, Intermittent, Less than 6 Hours Per Day (ICD-10-PCS; 2020-02-17)
PROC: 5A1D70Z Performance of Urinary Filtration, Intermittent, Less than 6 Hours Per Day (ICD-10-PCS; 2020-02-18)
PROC: 02HV33Z Insertion of Infusion Device into Superior Vena Cava, Percutaneous Approach (ICD-10-PCS; 2020-02-19)
PROC: B548ZZA Ultrasonography of Superior Vena Cava, Guidance (ICD-10-PCS; 2020-02-19)
PROC: 0T9430Z Drainage of Left Kidney Pelvis with Drainage Device, Percutaneous Approach (ICD-10-PCS; 2020-02-19)
PROC: 0T9330Z Drainage of Right Kidney Pelvis with Drainage Device, Percutaneous Approach (ICD-10-PCS; principal; 2020-02-25)
PROC: 30233N1 Transfusion of Nonautologous Red Blood Cells into Peripheral Vein, Percutaneous Approach (ICD-10-PCS; 2020-02-25)
DX: N17.0 Acute kidney failure with tubular necrosis (principal); G93.41 Metabolic encephalopathy; I13.0 Hypertensive heart and chronic kidney disease with heart failure and stage 1 through stage 4 chronic kidney disease, or unspecified chronic kidney disease; T83.83XA Hemorrhage due to genitourinary prosthetic devices, implants and grafts, initial encounter; T82.838A Hemorrhage due to vascular prosthetic devices, implants and grafts, initial encounter; D68.59 Other primary thrombophilia; E87.1 Hypo-osmolality and hyponatremia; E87.2 Acidosis; C78.6 Secondary malignant neoplasm of retroperitoneum and peritoneum; C78.7 Secondary malignant neoplasm of liver and intrahepatic bile duct; N13.1 Hydronephrosis with ureteral stricture, not elsewhere classified; Y83.8 Other surgical procedures as the cause of abnormal reaction of the patient, or of later complication, without mention of misadventure at the time of the procedure; Y92.239 Unspecified place in hospital as the place of occurrence of the external cause; E11.22 Type 2 diabetes mellitus with diabetic chronic kidney disease; E66.01 Morbid (severe) obesity due to excess calories; E78.5 Hyperlipidemia, unspecified; E87.5 Hyperkalemia; E87.6 Hypokalemia; G89.3 Neoplasm related pain (acute) (chronic); I48.0 Paroxysmal atrial fibrillation; I50.9 Heart failure, unspecified; T45.515A Adverse effect of anticoagulants, initial encounter; M10.9 Gout, unspecified; D63.8 Anemia in other chronic diseases classified elsewhere; N18.3 Chronic kidney disease, stage 3 (moderate); Z51.5 Encounter for palliative care; Z79.01 Long term (current) use of anticoagulants; Z87.891 Personal history of nicotine dependence; Z85.46 Personal history of malignant neoplasm of prostate; Z92.3 Personal history of irradiation; Z99.2 Dependence on renal dialysis; Z90.79 Acquired absence of other genital organ(s)
CPT/HCPCS: 36415; 50432; 71045; 74176; 74425; 76770; 76937; 76942; 77001; 80048; 80053; 80069; 80162; 81001; 82728; 83540; 83550; 83735; 83880; 84100; 85014; 85018; 85025; 85610; 86705; 86706; 86850; 86900; 86923; 87086; 87340; 90935; 93005; 99156; 99157; C1894; G0378; J1170; J1815; J2250; J2405; J3010; J3430; J3480; J7070; Q9966; Q9967; C1729; C1751; C1769; J1642; J2270; J2310; J7040; P9016

== ENCOUNTER → 2020-02-17 | Outpatient (CLI) | payer MEDICARE ==
[~2020-02-17] MED LIST: ALLO300T PO; ALLOPURINOL; CANCER; COUMADIN; ENZA40CA PO; LORA10TA75 PO; NAPR220C2 PO; WARF1TAB PO; WARFARIN
== END | disposition home or self-care (01) ==
LOC: RAD 09:49
PROVIDERS: ATTEND Internal Medicine Hematology & Oncology
DX: C80.1 Malignant (primary) neoplasm, unspecified (principal); N13.30 Unspecified hydronephrosis; N28.1 Cyst of kidney, acquired; K76.89 Other specified diseases of liver
CPT/HCPCS: 76770